=== PATIENT | female | born 1980 | race Caucasian/White ===

== ENCOUNTER 2024-02-23 11:10 | Emergency (ER) | payer MEDICAID ==
[~2024-02-23] VITALS: Ht 182.9 cm; Wt 136.4 kg
[~2024-02-23 11:10] MED LIST: CLIN-214 PO
[2024-02-23] MEDS: HYDROcodone/acetaminophen 5mg/325mg tablet PO ONE (11:44)
[2024-02-23] MEDS ORDERED: HYDR-3965 PO (11:46)
[2024-02-23 12:09] VITALS: BP 163/114; PULSE 62; RESP 16; TEMP 98; O2SAT 96
== END 2024-02-23 12:21 | disposition home or self-care (01) ==
LOC: ER 11:10
DX: S82.831A Other fracture of upper and lower end of right fibula, initial encounter for closed fracture (principal); I10 Essential (primary) hypertension; F15.90 Other stimulant use, unspecified, uncomplicated; Z79.2 Long term (current) use of antibiotics; Z90.710 Acquired absence of both cervix and uterus; X50.1XXA Overexertion from prolonged static or awkward postures, initial encounter; Y93.89 Activity, other specified; Y92.89 Other specified places as the place of occurrence of the external cause; Y99.8 Other external cause status
CPT/HCPCS: 73610; 99284; L4360

== ENCOUNTER 2024-12-16 12:23 | Outpatient (CLI) | payer MEDICAID | END 2024-12-16 23:59 | disposition home or self-care (01) | LOC: MRI02 12:23 | PROVIDERS: ATTEND Podiatrist Foot & Ankle Surgery | DX: S82.64XK Nondisplaced fracture of lateral malleolus of right fibula, subsequent encounter for closed fracture with nonunion (principal); D17.23 Benign lipomatous neoplasm of skin and subcutaneous tissue of right leg; S82.899A Other fracture of unspecified lower leg, initial encounter for closed fracture; M25.471 Effusion, right ankle; S93.409A Sprain of unspecified ligament of unspecified ankle, initial encounter; M25.371 Other instability, right ankle; Z72.0 Tobacco use; X58.XXXD Exposure to other specified factors, subsequent encounter | CPT/HCPCS: 73721 ==